=== PATIENT | female | born 1985 | race Caucasian/White ===

== ENCOUNTER → 2016-12-16 | Outpatient (CLI) | payer OTHER ==
[~2016-12-16] MED LIST: CARAFATE 1GM1 G PO; CIPRO 500MG TA500 MG PO; CYMBALTA 60MG60 MG PO; KEPPRA250 MG PO; MEDROL 4MG DOSPA4 MG PO; MOTRIN 200200 MG/TAB PO; NO HOME MEDICATIONS; PEPCID 20MG TAB20 MG PO; PHENERGAN 25 TA25 MG PO; PHENERGAN25 MG RC; SKELAXIN 800MG800 MG PO; TYLENOL 325MG325 MG PO; VICODIN 5/5001 UDTAB PO; ZOFRAN 4MG T4 MG/TAB PO
== END ==
LOC: MHCPAIN 11:42
DX: G89.29 Other chronic pain (principal); M47.27 Other spondylosis with radiculopathy, lumbosacral region; M43.16 Spondylolisthesis, lumbar region; F17.200 Nicotine dependence, unspecified, uncomplicated
CPT/HCPCS: G0463

== ENCOUNTER 2016-12-30 06:57 | Day surgery (SDC) | payer OTHER ==
[~2016-12-30] VITALS: Ht 160 cm; Wt 123.8 kg
[~2016-12-30 06:57] MED LIST changes: -CYMBALTA 60MG60 MG PO; -KEPPRA250 MG PO; -MOTRIN 200200 MG/TAB PO; -SKELAXIN 800MG800 MG PO; -TYLENOL 325MG325 MG PO
[2016-12-30 07:39] VITALS: BP 125/93; PULSE 83; TEMP 98
[2016-12-30] MEDS ORDERED: MOTRIN 200200 MG/TAB PO (07:42)
[2016-12-30] MEDS ORDERED: TYLENOL 325MG325 MG PO (07:42)
[2016-12-30] MEDS ORDERED: SKELAXIN 800MG800 MG PO ×2 (07:43→07:49)
[2016-12-30] MEDS ORDERED: KEPPRA250 MG PO (07:43)
[2016-12-30] MEDS ORDERED: CYMBALTA 60MG60 MG PO (07:43)
[2016-12-30 08:30] VITALS: BP 120/87; PULSE 82; TEMP 97.9
[2016-12-30 08:45] VITALS: BP 121/81; PULSE 69
[2016-12-30 09:00] VITALS: BP 119/81; PULSE 66
== END 2016-12-30 09:10 | disposition home or self-care (01) ==
LOC: SDCO 06:57
DX: Z12.11 Encounter for screening for malignant neoplasm of colon (principal); Z80.0 Family history of malignant neoplasm of digestive organs; K58.9 Irritable bowel syndrome, unspecified
CPT/HCPCS: J2250; J3010; J7030

== ENCOUNTER → 2017-01-16 | Outpatient (CLI) | payer OTHER ==
[~2017-01-16] MED LIST changes: +CYMBALTA 60MG60 MG PO; +KEPPRA250 MG PO; +MOTRIN 200200 MG/TAB PO; +SKELAXIN 800MG800 MG PO; +TYLENOL 325MG325 MG PO
== END ==
LOC: COL.RAD 14:33
DX: M54.2 Cervicalgia (principal); R20.9 Unspecified disturbances of skin sensation

== ENCOUNTER 2022-09-23 14:32 | Emergency (ER) | payer MEDICARE ==
[~2022-09-23] VITALS: Ht 160 cm; Wt 145.5 kg
[2022-09-23 14:49] VITALS: TEMP 98.2
[2022-09-23 19:50] VITALS: BP 135/94; PULSE 90
== END 2022-09-23 19:50 | disposition home or self-care (01) ==
LOC: COL.ER 14:32
DX: S80.11XA Contusion of right lower leg, initial encounter (principal); F17.200 Nicotine dependence, unspecified, uncomplicated; Z28.310 Unvaccinated for COVID-19; V48.9XXA Unspecified car occupant injured in noncollision transport accident in traffic accident, initial encounter; Y92.410 Unspecified street and highway as the place of occurrence of the external cause